=== PATIENT | male | born 1990 | race African-American/Black ===

== ENCOUNTER 2019-09-25 12:23 | Emergency (ER) | payer SELFPAY ==
[~2019-09-25] VITALS: Ht 177.8 cm; Wt 79.4 kg
[2019-09-25 12:39] VITALS: Ht 177.8 cm; Wt 79.4 kg
[2019-09-25 13:00] VITALS: BP 134/82
== END 2019-09-25 13:00 | disposition other institution (70) ==
LOC: ED 12:23
DX: S50.311A Abrasion of right elbow, initial encounter (principal); Z13.9 Encounter for screening, unspecified; W18.30XA Fall on same level, unspecified, initial encounter; Y93.89 Activity, other specified; Y92.89 Other specified places as the place of occurrence of the external cause; Y99.8 Other external cause status

== ENCOUNTER 2019-09-25 12:23 | Emergency (ER) | payer OTHER | END 2019-09-25 13:00 | disposition other institution (70) | LOC: ED 12:23 | DX: Z02.89 Encounter for other administrative examinations (principal) ==